=== PATIENT | female | born 1960 | race Caucasian/White ===

== ENCOUNTER 2016-12-17 11:22 | Emergency (ER) | payer OTHER ==
[~2016-12-17] VITALS: Ht 162.6 cm; Wt 86.2 kg
[2016-12-17] MEDS ORDERED: Norco 5mg/325mg tab PO ONE (11:30)
[2016-12-17] MEDS ORDERED: Tylenol #3 tab (300mg/30mg) ORAL ONE (11:45)
--- NOTE | 2016-12-17 12:10 | Diagnostic Imaging Report ---
Indication: PAIN Technique: 3 views right foot Comparison: none Findings: No acute fractures. No dislocations. Joint spaces are preserved. There is mild hallux valgus and metatarsus adductus, mild hammertoe deformity of the second through fifth digits. Small plantar spur. Impression: No acute process
--- NOTE | 2016-12-17 12:12 | Diagnostic Imaging Report ---
Indication: PAIN Technique: 3 views of the right ankle Comparison: none Findings: Soft tissue swelling overlies lateral malleolus. No definite acute fractures. No dislocations. Joint spaces are preserved. Small plantar spur incidentally noted. Impression: Evidence of soft tissue injury No acute bony trauma
[2016-12-17] MEDS ORDERED: walking boot (12:31)
[2016-12-17] MEDS ORDERED: IBUPROFEN600 MG ORAL (12:31)
[2016-12-17 12:45] VITALS: BP 133/75
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
== END 2016-12-17 12:45 | disposition home or self-care (01) ==
LOC: EDSEX 11:22 → EDBD 11:22 → EMR 12:00
DX: S93.401A Sprain of unspecified ligament of right ankle, initial encounter (principal); V43.52XA Car driver injured in collision with other type car in traffic accident, initial encounter; Y92.410 Unspecified street and highway as the place of occurrence of the external cause; Z88.2 Allergy status to sulfonamides
CPT/HCPCS: 99284